=== PATIENT | female | born 1980 | race Caucasian/White ===

== ENCOUNTER 2017-06-18 11:17 | Outpatient (CLI) | payer MEDICAID | END 2017-06-18 12:40 | disposition home or self-care (01) | LOC: LC 11:17 | PROVIDERS: ATTEND Obstetrics & Gynecology | PROC: 4A1HXCZ Monitoring of Products of Conception, Cardiac Rate, External Approach (ICD-10-PCS; principal; 2017-06-18) | DX: O09.523 Supervision of elderly multigravida, third trimester (principal); Z3A.34 34 weeks gestation of pregnancy | CPT/HCPCS: 59025 ==

== ENCOUNTER 2017-06-21 11:17 | Outpatient (CLI) | payer MEDICAID ==
--- NOTE | 2017-06-21 13:17 | Non Stress Test Report ---
Non Stress Test Datetime Report Generated by CPN: 06/21/2017 13:17 DEMOGRAPHIC Test Number: 1 EGA NST: 34.5 EGA NST: 34.2 INDICATION Indication for Study: Ordered by Provider Indication for Study: Ordered by Provider Indication for Study (NST) Other: AMA VITAL SIGNS Temperature - NST: 97.5 Pulse - NST: 108 RESP - NST: 18 RESP - NST: 16 NBPSYS NST: 117 NBPDIA NST: 71 MONITORING Monitor Explained: Monitor Explained; Test Explained; Patient Verbalized Understanding Monitor Explained: Monitor Explained; Test Explained; Patient Verbalized Understanding Time on Monitor: 06/21/2017 11:25 Time on Monitor: 06/18/2017 11:28 Time off Monitor: 06/21/2017 13:14 NST Duration: 109 NST INTERVENTIONS NST Interventions: PO Hydration; Reposition Patient NST Interventions: PO Hydration; Reposition Patient Physician Notified NST: Darek Huerta CNM BABY A: [id number] BABY A Movement : Present Contraction Frequency : 0 FHR Baseline : 130 Accelerations : 15X15 Decelerations : None Variability : Moderate 6-25bpm NST Review: Meets Criteria for Reactive NST NST Review and Verified By : Claudia Dang RN NST Results: Reactive NST REPORT Report Trigger: Send Report
== END 2017-06-21 13:17 | disposition home or self-care (01) ==
LOC: LC 11:17
PROVIDERS: ATTEND Obstetrics & Gynecology
PROC: 4A1HXCZ Monitoring of Products of Conception, Cardiac Rate, External Approach (ICD-10-PCS; principal; 2017-06-21)
DX: O09.523 Supervision of elderly multigravida, third trimester (principal); Z3A.34 34 weeks gestation of pregnancy
CPT/HCPCS: 59025

== ENCOUNTER 2017-07-01 13:07 | Outpatient (CLI) | payer MEDICAID ==
[2017-07-01 14:22] LABS: APPEARANCE,URINE CLEAR; BILIRUBIN,URINE NEGATIVE (NEGATIVE); COLOR,URINE YELLOW; GLUCOSE, URINE NEGATIVE (NEGATIVE); KETONES,URINE NEGATIVE (NEGATIVE); LEUKOCYTE ESTERASE,URINE NEGATIVE (NEGATIVE); NITRITE,URINE NEGATIVE (NEGATIVE); PROTEIN,URINE NEGATIVE (NEGATIVE); UROBILINOGEN,URINE NEGATIVE mg/dL (<2.0)
[2017-07-01 14:36] LABS: URINE AMPHETAMINES SCREEN NEGATIVE; URINE BARBITURATES SCREEN NEGATIVE; URINE BENZODIAZEPINES SCREEN NEGATIVE; URINE COCAINE SCREEN NEGATIVE; URINE MARIJUANA (THC) SCREEN NEGATIVE; URINE METHADONE SCREEN NEGATIVE; URINE PHENCYCLIDINE SCREEN NEGATIVE
== END 2017-07-01 14:47 | disposition home or self-care (01) ==
LOC: LC 13:07
PROVIDERS: ATTEND Obstetrics & Gynecology
PROC: 4A1HXCZ Monitoring of Products of Conception, Cardiac Rate, External Approach (ICD-10-PCS; principal; 2017-07-01)
DX: O36.4XX0 Maternal care for intrauterine death, not applicable or unspecified (principal); O09.523 Supervision of elderly multigravida, third trimester; Z3A.36 36 weeks gestation of pregnancy
CPT/HCPCS: 80307; 81001

== ENCOUNTER 2017-07-02 10:41 | Inpatient (IN) | payer MEDICAID ==
[2017-07-02] MEDS ORDERED: RINGERS SOLUTION,LACTATED 1,000 ML IV PRN (11:31)
[2017-07-02] MEDS ORDERED: RINGERS SOLUTION,LACTATED 300 ML IV ONE (11:31)
[2017-07-02] MEDS ORDERED: OXYTOCIN/NORMAL SALINE 20 UNIT/1,000 ML RTUINJ IV PRN ×2 (11:31→20:27)
[2017-07-02] MEDS ORDERED: MISOPROSTOL 0.2 MG TABLET PV ONE (11:33)
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
[2017-07-02] MEDS ORDERED: MISOPROSTOL 0.1 MG TABLET ONE (11:51)
[2017-07-02 12:50] LABS: APPEARANCE,URINE SLIGHTLY-CLOUDY; BILIRUBIN,URINE NEGATIVE (NEGATIVE); COLOR,URINE YELLOW; GLUCOSE, URINE NEGATIVE (NEGATIVE); KETONES,URINE TRACE mg/dL (NEGATIVE); LEUKOCYTE ESTERASE,URINE NEGATIVE (NEGATIVE); NITRITE,URINE NEGATIVE (NEGATIVE); PROTEIN,URINE NEGATIVE (NEGATIVE); URINE SPECIFIC GRAVITY 1.015; UROBILINOGEN,URINE NEGATIVE mg/dL (<2.0)
[2017-07-02 13:02] LABS: URINE AMPHETAMINES SCREEN NEGATIVE; URINE BARBITURATES SCREEN NEGATIVE; URINE BENZODIAZEPINES SCREEN NEGATIVE; URINE COCAINE SCREEN NEGATIVE; URINE MARIJUANA (THC) SCREEN NEGATIVE; URINE METHADONE SCREEN NEGATIVE; URINE PHENCYCLIDINE SCREEN NEGATIVE
[2017-07-02] MEDS ORDERED: MISOPROSTOL 0.1 MG TABLET PO SCH (14:00)
[2017-07-02 14:13] LABS: ABSOLUTE EOSINOPHILS # (AUTO) 0.2 10^3/uL (0.0-0.6); ABSOLUTE LYMPHOCYTES (AUTO) 2.1 10^3/uL (0.5-4.7); ABSOLUTE MONOCYTES (AUTO) 0.8 10^3/uL (0.1-1.4); ABSOLUTE NEUT (AUTO) 10.1 10^3/uL (1.7-8.2); BASOPHILS % (AUTO) 0.3 % (0-2); EOSINOPHILS % (AUTO) 1.2 % (0-6); HEMATOCRIT 36.9 % (36.0-47.0); HEMOGLOBIN 12.1 g/dL (12.0-15.5); MEAN CORPUSCULAR HEMOGLOBIN 26.9 pg (27.0-33.4); MEAN CORPUSCULAR HGB CONC 32.8 g/dL (32.0-36.0); MEAN CORPUSCULAR VOLUME 82 fl (80-97); MONOCYTES % (AUTO) 6.1 % (3-13); PLATELET COUNT 210 10^3/uL (150-450); RED BLOOD COUNT 4.49 10^6/uL (3.72-5.28); RED CELL DISTRIBUTION WIDTH 15.2 % (11.5-14.0); SEGMENTED NEUTROPHILS % (AUTO) 76.4 % (42-78); TOTAL CELLS COUNTED % (AUTO) 100 %; WHITE BLOOD COUNT 13.3 10^3/uL (4.0-10.5)
--- NOTE | 2017-07-02 16:13 | L&D Progress Notes ---
PROGRESS NOTES Datetime Report Generated by CPN: 07/02/2017 16:13 PROGRESS NOTE Procedures: Scalp Electrode Plan: Continue Present Management; Induction Vital Signs : Reviewed Comment: coping well but would like an epidural will start pitocin VAGINAL EXAM Dilatation: 3 Dilatation: 1 Effacement: 60 Effacement: 80 Station: -2 Station: -2 Contractions: 2-4 min apart Contractions: irregular MEMBRANES Membranes: Intact FETUS A Presentation: Vertex SIGNATURE SIGNATURE: [id number] SIGNATURE: [id number] SIGNATURE: [id number] Assignment: Vinny Ye MD Signature: with User ID: Jo : with User ID: Jo
[2017-07-02] MEDS ORDERED: OXYTOCIN/NORMAL SALINE 20 UNIT/1,000 ML RTUINJ ONE (16:15)
[2017-07-02] MEDS ORDERED: BUPIVACAINE HCL 0.25 % INJ/PF (2.5 MG/1 ML) 30 ML VIAL ONE (16:37)
[2017-07-02] MEDS ORDERED: EPHEDRINE SULFATE INJ 50 MG/1 ML AMPULE ONE (16:37)
[2017-07-02] MEDS ORDERED: FENTANYL/BUPIVACAINE/NS/PF 300 MCG/150 ML RTUINJ EPI ONE (16:38)
[2017-07-02] MEDS ORDERED: ONDANSETRON HCL INJ/PF 4 MG/2 ML SDV IV ONE (17:49)
[2017-07-02] MEDS ORDERED: ONDANSETRON HCL INJ/PF 4 MG/2 ML SDV ONE (17:49)
[2017-07-02] MEDS ORDERED: DIPH/PERTUSS(ACELL)/TETANUS VAC/PF 0.5 ML SYR (>=10YO) IM PRN (20:27)
[2017-07-02] MEDS ORDERED: ZOLPIDEM TARTRATE 5 MG TABLET PO PRN (20:27)
[2017-07-02] MEDS ORDERED: DIBUCAINE 1% OINTMENT 28 GM TP PRN (20:27)
[2017-07-02] MEDS ORDERED: ACETAMINOPHEN WITH CODEINE #3 TABLET PO PRN ×2 (20:27)
[2017-07-02] MEDS ORDERED: MEASLES,MUMPS&RUBELLA VACC/PF 0.5 ML VIAL SUBCUT PRN (20:27)
[2017-07-02] MEDS ORDERED: BENZOCAINE/MENTHOL AEROSOL SPRAY 56 ML TOP PRN (20:27)
[2017-07-02] MEDS ORDERED: IBUPROFEN 800 MG TABLET PO SCH (22:00)
[2017-07-02] MEDS ORDERED: IBUPROFEN 800 MG TABLET ONE (23:46)
[2017-07-03] MEDS ORDERED: ACETAMINOPHEN WITH CODEINE #3 TABLET ONE (06:30)
[2017-07-03 07:30] LABS: HEMATOCRIT 34.9 % (36.0-47.0); HEMOGLOBIN 11.4 g/dL (12.0-15.5); MEAN CORPUSCULAR HEMOGLOBIN 26.9 pg (27.0-33.4); MEAN CORPUSCULAR HGB CONC 32.8 g/dL (32.0-36.0); MEAN CORPUSCULAR VOLUME 82 fl (80-97); PLATELET COUNT 212 10^3/uL (150-450); RED BLOOD COUNT 4.25 10^6/uL (3.72-5.28); RED CELL DISTRIBUTION WIDTH 15.3 % (11.5-14.0); WHITE BLOOD COUNT 13.5 10^3/uL (4.0-10.5)
[2017-07-03] MEDS ORDERED: SENNOSIDES/DOCUSATE 8.6-50 MG 1 EACH TABLET PO SCH (10:00)
[2017-07-03] MEDS ORDERED: PRENATAL VITAMIN W DHA CAPSULE PO SCH (10:00)
[2017-07-03] MEDS ORDERED: DOCUSATE SODIUM 100 MG CAPSULE PO SCH (10:00)
[2017-07-03] MEDS ORDERED: FERROUS SULFATE 325 MG TABLET PO SCH (10:00)
--- NOTE | 2017-07-03 12:55 | PDOC PROGRESS REPORT ---
Subjective-OB Progress Note for:: 07/03/17 Subjective: s/p day #0 Pt grieving appropriately, family at bedside, has good support. lochia is stable , pain well control, voiding without difficulty. Physical Exam (OB) Vital Signs: Intake & Output 07/02/17 07/03/17 07/04/17 06:59 06:59 06:59 Weight 81 kg - Lochia Lochia Amount: Scant < 10 ml Objective-Diagnostic Laboratory: 07/03/17 07:13 07/02/17 07/02/17 07/02/17 11:20 13:18 13:18 WBC 13.3 H RBC 4.49 Hgb 12.1 Hct 36.9 MCV 82 MCH 26.9 L MCHC 32.8 RDW 15.2 H Plt Count 210 Seg Neutrophils % 76.4 Lymphocytes % 16.0 Monocytes % 6.1 Eosinophils % 1.2 Basophils % 0.3 Absolute Neutrophils 10.1 H Absolute Lymphocytes 2.1 Absolute Monocytes 0.8 Absolute Eosinophils 0.2 Absolute Basophils 0.0 Urine Color YELLOW Urine Appearance SLIGHTLY-CLOUDY Urine pH 6.0 Ur Specific [place] 1.015 Urine Protein NEGATIVE Urine Glucose (UA) NEGATIVE Urine Ketones TRACE H Urine Blood NEGATIVE Urine Nitrite NEGATIVE Ur Leukocyte Esterase NEGATIVE Urine WBC (Auto) 1 Urine RBC (Auto) 0 Blood Type O POSITIVE Antibody Screen NEGATIVE 07/03/17 07:13 WBC 13.5 H RBC 4.25 Hgb 11.4 L Hct 34.9 L MCV 82 MCH 26.9 L MCHC 32.8 RDW 15.3 H Plt Count 212 Seg Neutrophils % Lymphocytes % Monocytes % Eosinophils % Basophils % Absolute Neutrophils Absolute Lymphocytes Absolute Monocytes Absolute Eosinophils Absolute Basophils Urine Color Urine Appearance Urine pH Ur Specific [place] Urine Protein Urine Glucose (UA) Urine Ketones Urine Blood Urine Nitrite Ur Leukocyte Esterase Urine WBC (Auto) Urine RBC (Auto) Blood Type Antibody Screen Assessment and Plan(PN) - Assessment and Plan (1) IUFD (intrauterine ) Is this a current diagnosis for this admission?: Yes Plan: routine pp care (2) (spontaneous vaginal delivery) Is this a current diagnosis for this admission?: Yes Plan: routine pp care follow up in 1 week - Time Spent with Patient Time with patient: Less than 15 minutes Critical Time spent with patient: Less than 15 minutes Medications reviewed and adjusted accordingly: Yes - Disposition Anticipated Discharge: Home Within: within 24 hours
--- NOTE | 2017-07-03 12:56 | PDOC DISCHARGE SUMMARY ---
Final Diagnosis Discharge Date: 07/03/17 - Final Diagnosis (1) IUFD (intrauterine ) Is this a current diagnosis for this admission?: Yes (2) (spontaneous vaginal delivery) Is this a current diagnosis for this admission?: Yes Discharge Data - Discharge Medication Home Medications: Vit,Calc76/Iron/Folic [Pnv 29-1 Tablet] 1 tab PO DAILY 06/18/17 Gestational Age: 36.2 Reason(s) for Admission: Demise Intrapartum Procedure(s): Spontaneous Vaginal Delivery - [place] Data Baby 1 Male at 1 minute: 0 at 5 minutes: 0 Weight: 2.977 kg Home with Mother: No Complications: Yes - iufd - Diagnosis Test Laboratory: 07/02/17 07/02/17 07/03/17 11:20 13:18 07:13 RBC 4.49 4.25 Hgb 12.1 11.4 L Hct 36.9 34.9 L Urine Opiates Screen NEGATIVE - Discharge information/Instructions Discharge Activity: Pelvic Rest Discharge Diet: Regular Disposition: HOME, SELF-CARE Follow up with: [facility] in: 1, Weeks
[2017-07-03 14:37] VITALS: BP 123/65
== END 2017-07-03 14:45 | disposition home or self-care (01) | DRG 775 ==
LOC: LR 10:41
PROVIDERS: ADMIT Obstetrics & Gynecology Gynecology; ATTEND Obstetrics & Gynecology Gynecology
PROC: 10E0XZZ Delivery of Products of Conception, External Approach (ICD-10-PCS; principal; 2017-07-02)
DX: O36.4XX0 Maternal care for intrauterine death, not applicable or unspecified (principal); Z3A.36 36 weeks gestation of pregnancy; Z37.1 Single stillbirth
CPT/HCPCS: 36415; 80307; 81001; 85025; 85027; 86592; 86850; 86900; 86901; 88307; J2405; J2590; J3010; J3490

== ENCOUNTER 2018-02-01 22:24 | Emergency (ER) | payer MEDICAID ==
--- NOTE | 2018-02-01 23:07 | ER Document Report ---
ED General - General Chief Complaint: OB Problem (<20wks) Stated Complaint: LOWER ABDOMINAL PAIN Time Seen by Provider: 02/01/18 22:42 TRAVEL OUTSIDE OF THE [place] IN LAST 30 DAYS: No - HPI Patient complains to provider of: cramping this week worse today Notes: 37-year-old female M1 currently 18 weeks presents to the emergency department for cramping since Sunday that was worse today prompting her to get seen. She states she lost the baby this past summer at 37 weeks and had a prior miscarriage at 18 weeks. She is concerned that she is in labor and is dilating. She called labor and delivery who told her to come to the emergency department. She is receiving routine care and has an appointment next week. She endorses cramping and no other symptoms at this time. - Related Data Allergies/Adverse Reactions: No Known Allergies Allergy (Verified 07/02/17 12:20) Past Medical History - Social History Smoking Status: Never Smoker Family History: Reviewed & Not Pertinent Review of Systems - Review of Systems Constitutional: No symptoms reported EENT: No symptoms reported Cardiovascular: No symptoms reported Respiratory: No symptoms reported Gastrointestinal: No symptoms reported Genitourinary: No symptoms reported Female Genitourinary: , Other - cramping Musculoskeletal: No symptoms reported Skin: No symptoms reported Hematologic/Lymphatic: No symptoms reported Neurological/Psychological: No symptoms reported Physical Exam - Vital signs Vitals: Temp Pulse Resp BP Pulse Ox 98.1 F 93 17 139/80 H 98 02/01/18 22:27 02/01/18 22:27 02/01/18 22:27 02/01/18 22:27 02/01/18 22:27 Course - Re-evaluation Re-evalutation: 02/01/18 23:04 Assessed patient with Juan Antonio Li. On ultrasound baby was moving and heart activity detected. Doppler showed heart rate of 145-155. 02/02/18 00:22 Urinalysis shows no evidence of a UTI. Patient is overall reassured when she saw the ultrasound of his activity. Patient it could be due to her activity and the fact that she did drink caffeine this afternoon. Says she has an appointment with her OB this upcoming week. At this point patient is safe to discharge home with strict precautions and pelvic rest. - Vital Signs Vital signs: Temp Pulse Resp BP Pulse Ox 98.1 F 93 17 139/80 H 98 02/01/18 22:27 02/01/18 22:27 02/01/18 22:27 02/01/18 22:27 02/01/18 22:27 Discharge - Discharge Clinical Impression: Cramping affecting , antepartum Disposition: HOME, SELF-CARE Additional Instructions: You were seen in the emergency department this evening for cramping. The ultrasound was very reassuring and you saw activity. Doppler showed the heart rate was 145-155. It is unclear why your cramping but at this point it is not life-threatening to you or your baby. Please call your OB Sunday morning and follow-up with your appointment next week. Also, ensure pelvic rest you see your OB. Refrain from sex until then. Please immediately return to the emergency department if you have vaginal bleeding and severe cramping, fever greater than 101, intractable nausea and vomiting, or if you are concerned in any way. Referrals: ANDRE NICHOLS MD [Primary Care Provider] - Follow up as needed
[2018-02-02 00:09] LABS: APPEARANCE,URINE CLEAR; BILIRUBIN,URINE NEGATIVE (NEGATIVE); COLOR,URINE COLORLESS; GLUCOSE, URINE NEGATIVE (NEGATIVE); KETONES,URINE NEGATIVE (NEGATIVE); LEUKOCYTE ESTERASE,URINE NEGATIVE (NEGATIVE); NITRITE,URINE NEGATIVE (NEGATIVE); PROTEIN,URINE NEGATIVE (NEGATIVE); URINE SPECIFIC GRAVITY 1.006; UROBILINOGEN,URINE NEGATIVE mg/dL (<2.0)
[2018-02-02 07:02] VITALS: BP 121/76
== END 2018-02-02 01:15 | disposition home or self-care (01) ==
LOC: ER 22:24
DX: O26.892 Other specified pregnancy related conditions, second trimester (principal); R10.30 Lower abdominal pain, unspecified; Z3A.18 18 weeks gestation of pregnancy
CPT/HCPCS: 81001; 99284

== ENCOUNTER 2018-06-01 19:55 | Inpatient (IN) | payer MEDICAID ==
[2018-06-01] MEDS ORDERED: TERBUTALINE SULFATE INJ/PF 1 MG/1 ML SDV ONE (20:33)
[2018-06-01 20:43] LABS: APPEARANCE,URINE CLEAR; BILIRUBIN,URINE NEGATIVE (NEGATIVE); COLOR,URINE STRAW; GLUCOSE, URINE NEGATIVE (NEGATIVE); KETONES,URINE NEGATIVE (NEGATIVE); LEUKOCYTE ESTERASE,URINE NEGATIVE (NEGATIVE); NITRITE,URINE NEGATIVE (NEGATIVE); PROTEIN,URINE NEGATIVE (NEGATIVE); URINE SPECIFIC GRAVITY 1.008; UROBILINOGEN,URINE NEGATIVE mg/dL (<2.0)
[2018-06-01] MEDS ORDERED: PENICILLIN G-K 5 MILLION UNIT VIAL ONE (20:47)
[2018-06-01 20:48] LABS: URINE AMPHETAMINES SCREEN NEGATIVE; URINE BARBITURATES SCREEN NEGATIVE; URINE BENZODIAZEPINES SCREEN NEGATIVE; URINE COCAINE SCREEN NEGATIVE; URINE MARIJUANA (THC) SCREEN NEGATIVE; URINE METHADONE SCREEN NEGATIVE; URINE PHENCYCLIDINE SCREEN NEGATIVE
[2018-06-01] MEDS ORDERED: RINGERS SOLUTION,LACTATED 1,000 ML IV PRN ×2 (20:56→20:58)
[2018-06-01] MEDS ORDERED: PENICILLIN G-K 5 MILLION UNIT VIAL IV ONE (21:15)
[2018-06-01] MEDS ORDERED: MISOPROSTOL 0.2 MG TABLET ONE (21:21)
[2018-06-01] MEDS ORDERED: LIDOCAINE 1% INJ-PF (10 MG/ML) 30 ML SDV ONE (21:21)
[2018-06-01] MEDS ORDERED: OXYTOCIN/NORMAL SALINE 20 UNIT/1,000 ML RTUINJ ONE (21:22)
[2018-06-01 21:27] LABS: ABSOLUTE EOSINOPHILS # (AUTO) 0.1 10^3/uL (0.0-0.6); ABSOLUTE LYMPHOCYTES (AUTO) 3.5 10^3/uL (0.5-4.7); ABSOLUTE MONOCYTES (AUTO) 0.9 10^3/uL (0.1-1.4); BASOPHILS % (AUTO) 0.2 % (0-2); HEMATOCRIT 33.1 % (36.0-47.0); HEMOGLOBIN 11.1 g/dL (12.0-15.5); LYMPHOCYTES % (AUTO) 25.9 % (13-45); MEAN CORPUSCULAR HEMOGLOBIN 28.8 pg (27.0-33.4); MEAN CORPUSCULAR HGB CONC 33.6 g/dL (32.0-36.0); MEAN CORPUSCULAR VOLUME 86 fl (80-97); MONOCYTES % (AUTO) 6.7 % (3-13); PLATELET COUNT 150 10^3/uL (150-450); RED BLOOD COUNT 3.86 10^6/uL (3.72-5.28); RED CELL DISTRIBUTION WIDTH 14.3 % (11.5-14.0); SEGMENTED NEUTROPHILS % (AUTO) 66.2 % (42-78); TOTAL CELLS COUNTED % (AUTO) 100 %; WHITE BLOOD COUNT 13.7 10^3/uL (4.0-10.5)
[2018-06-01] MEDS ORDERED: HYDROMORPHONE HCL INJ/PF 2 MG/ML AMPULE ONE (22:05)
[2018-06-01] MEDS ORDERED: AMPICILLIN SOD/SULBACTAM 3 GM VIAL ONE (22:25)
[2018-06-01] MEDS ORDERED: DIBUCAINE 1% OINTMENT 56 GM TP PRN (22:37)
[2018-06-01] MEDS ORDERED: PSEUDOEPHEDRINE HCL 30 MG TABLET PO PRN (22:37)
[2018-06-01] MEDS ORDERED: PROMETHAZINE HCL INJ 25 MG/1 ML VIAL IV PRN (22:37)
[2018-06-01] MEDS ORDERED: ACETAMINOPHEN WITH CODEINE #3 TABLET PO PRN (22:37)
[2018-06-01] MEDS ORDERED: ZOLPIDEM TARTRATE 5 MG TABLET PO PRN (22:37)
[2018-06-01] MEDS ORDERED: MEASLES,MUMPS&RUBELLA VACC/PF 0.5 ML VIAL SUBCUT PRN (22:37)
[2018-06-01] MEDS ORDERED: PROMETHAZINE HCL 25 MG SUPP.RECT PR PRN (22:37)
[2018-06-01] MEDS ORDERED: DIPHENHYDRAMINE HCL 25 MG CAPSULE PO PRN (22:37)
[2018-06-01] MEDS ORDERED: OXYTOCIN/NORMAL SALINE 20 UNIT/1,000 ML RTUINJ IV PRN (22:37)
[2018-06-01] MEDS ORDERED: GLYCERIN/WITCH HAZEL LEAF 1 EACH MED..PAD TP PRN (22:37)
[2018-06-01] MEDS ORDERED: NA PHOS,M-B/NA PHOS,DI-BA (ADULT) 133 ML ENEMA PR PRN (22:37)
[2018-06-01] MEDS ORDERED: PROMETHAZINE HCL 25 MG TABLET PO PRN (22:37)
[2018-06-01] MEDS ORDERED: MAGNESIUM HYDROXIDE SUSP 30 ML UDCUP PO PRN (22:37)
[2018-06-01] MEDS ORDERED: ACETAMINOPHEN 650 MG SUPP.RECT PR PRN (22:37)
[2018-06-01] MEDS ORDERED: DIPH/PERTUSS(ACELL)/TETANUS VAC/PF 0.5 ML SYR (>=10YO) IM PRN (22:37)
[2018-06-01] MEDS ORDERED: BENZOCAINE/MENTHOL AEROSOL SPRAY 56 ML TOP PRN (22:37)
[2018-06-01] MEDS ORDERED: AMPICILLIN SOD/SULBACTAM 3 GM VIAL IV ONE (23:00)
--- NOTE | 2018-06-01 23:29 | Admission Physical ---
Datetime Report Generated by CPN: 06/01/2018 23:29 CURRENT ADMISSION Chief Complaint: Uterine Contractions; Other Chief Complaint Other: Painful contractions Admit Impression : , Intrauterine ; Active Labor Admit Plan: Admit to Unit; Initiate Labor Protocol ALLERGIES Medication Allergies: No Medication Allergies: No Known Allergies (07/02/2017) OBSTETRICAL HISTORY EDC: 07/04/2018 00:00 : 6 Para: 4 Term: 3 : 1 SAB: 0 IAB: 1 Ectopic: 0 Livin Cesareans: 0 VBACs: 0 Multiple Births: 0 Gestational Diabetes: No Rh Sensitization: No Incompetent Cervix: No UMESH: No Infertility: No ART Treatment: No Uterine Anomaly: No IUGR: No Hx Previous C/S: No Macrosomia: Yes Hx Loss/Stillborn: Yes PIH: No Hx : No Placenta Previa/Abruption: No Depression/PP Depression: No PTL/PROM: No Post Hemorrhage: No Current Procedures: Ultrasound; NST Obstetrical History Comments: @ 38wks male 6lbs 9oz G204/2009 @ 39wks male 9lbs 8oz G3- 09/2010 IUFD @ 16wks female induced @ 18wks 11/2015 @ 39wks male 9lbs 12oz 06/2017 IUFD @ 36wks male 6lbs 9oz (possible placental detachment) SEE RECORDS Alcohol: No Marijuana : No Cocaine: No Other Illicit Drugs: No Cigarettes: Never Smoker. [id number] MEDICAL HISTORY Diabetes: No Blood Transfusion: No Pulmonary Disease (Asthma, TB): No Breast Disease: No Hypertension: No Medical Assistant Surgery: No Heart Disease: No Hosp/Surgery: Yes Autoimmune Disorder: No Anesthetic Complications: No Kidney Disease: No Abnormal Pap Smear: No Neuro/Epilepsy: No Psychiatric Disorders: No Other Medical Diseases: No Hepatitis/Liver Disease: No Significant Family History: No Varicosities/Phlebitis: No Trauma/Violence : No Thyroid Dysfunction: Yes Medical History Comments: hypothyroid, cholecystectomy INFECTIOUS HISTORY Gonorrhea: No Genital Herpes: No Chlamydia: No Tuberculosis: No Syphilis: No Hepatitis: No HIV/AIDS Exposure: No Rash or Viral Illness: No HPV: No PHYSICAL EXAM General: Normal HEENT: Deferred Neurologic: Normal Thyroid: Deferred Heart: Deferred Lungs: Normal Breast: Deferred Back: Normal Abdomen: Normal Genitourinary Exam: Normal Extremities: Normal DTRs: Normal Pelvic Type: Adequate Physical Exam Comments: Bloody show with exam Vital Signs: Reviewed; Within Normal Limits VAGINAL EXAM Dilatation: 9 Effacement: 90 Station: 0 Contraction Comments: 2mins MEMBRANES Membranes: Ruptured Amniotic Fluid Color: Clear FETUS A EGA: 35.2 Monitoring: External US FHR- Baseline: 130 Variability: Moderate 6-25bpm Accelerations: 15X15 Decelerations: None FHR Category: Category I Estimated Weight (gm): 2800 Presentation: Vertex Admit Comment: 37yo @ 35w2d presented to L_D with painful uterine contractions starting a few hours prior to arriving on L_D. Patient reports good fm, no vb, no lof. GBS uknown but swab collected. Patient was noted to change from 3cm to 6cm in an hours time. Patient was admitted and labor protocol started. Patient was started on penicillin for GBS unknown and status. Patient rapidly changed her cervix. NICU was called to be present at delivery. Amniotomy was performed for clear fluid and shortly there after patient delivery a viable female . PLANS FOR LABOR AND DELIVERY Labor and Delivery: None Pain Management: Epidural Feeding Preference: Breast Benefit of Breast Feed Discussed: Yes Circumcision: N/A INFORMED CONSENT Signature: with User ID: [email or web address]
--- NOTE | 2018-06-02 01:21 | Delivery Summary ---
Del Sum A-C Datetime Report Generated by CPN: 06/02/2018 01:21 DELIVERY PERSONNEL DELIVERY PERSONNEL: [id number] Delivery Doctor:: Reba Muir MD Labor and Delivery Nurse:: Lianne Love RN Nursery Nurse:: Tanna Panda RN Clerical Warehouse Worker/HOT MIX OPERATOR: Julisa Carr, ESTATE AGENT MATERNAL INFORMATION Delivery Anesthesia: None Medications After Delivery: Pitocin Bolus-Please Comment Meds After Delivery Comment: Pitocin bolus 20 units/1000 mL NS bolus Estimated Blood Loss (ml): 50 Maternal Complications: Precipitous Labor (<3hrs); Other Complication Details: GBS unknown Provider Comments: Pitocin given after baby born. Fundal massage completed and gentle traction on the umbilical cord placed. No signs of placental separation after 30mins. Placenta was manually removed in pieces. The internal surface of the uterus was palpated after removal of the placenta and noted to be smooth. Patient had to be given 2mg of dilaudid in prep for removal of the placenta. Patient received unasyn 3g IV x 1. Patient tolerated procedure well. LABOR SUMMARY EDC: 07/04/2018 00:00 No. Babies in Womb: 1 Attempted: No Labor Anesthesia: None LABOR INFORMATION Reason for Induction: Not Applicable Onset of Labor: 06/01/2018 20:58 Complete Dilatation: 06/01/2018 21:47 Oxytocin: N/A Group B Beta Strep: unkown Antibiotics # of Doses: 1 Antibiotics Time of Last Dose: 2105 Name of Antibiotic Given: PCN Steroids Given: None Reason Steroids Not Administered: Not Applicable Other Reason Not Administered: precipitous labor MEMBRANES Membranes Rupture Method: Artificial Rupture of Membranes: 06/01/2018 21:46 Length of Rupture (hr): 0.05 Amniotic Fluid Color: Clear Amniotic Fluid Amount: Small Amniotic Fluid Odor: Normal STAGES OF LABOR Stage 1 hr: 0 Stage 1 min: 49 Stage 2 hr: 0 Stage 2 min: 2 Stage 3 hr: 0 Stage 3 min: 23 Total Time in Labor hr: 1 Total Time in Labor min: 14 VAGINAL DELIVERY Episiotomy: None Laceration #1: None Laceration Repair: Not Applicable Sponge Count Correct: Yes Sharps Count Correct: Yes CSECTION DELIVERY Primary Indication: N/A Secondary Indication: N/A CSection Incidence: N/A Labor: N/A Elective: N/A CSection Incision: N/A BABY A INFORMATION Infant Delivery Date/Time: 06/01/2018 21:49 Method of Delivery: Vaginal Born in Route : No : N/A Forceps: N/A Vacuum Extraction: N/A Shoulder Dystocia : No PRESENTATION/POSITION BABY A Presentation: Cephalic Cephalic Presentation: Vertex Vertex Position: Left Occipital Anterior Breech Presentation: N/A PLACENTA INFORMATION BABY A Placenta Delivery Time : 06/01/2018 22:12 Placenta Method of Delivery: Manual Removal Placenta Status: Delivered SCORES BABY A Heart Rate 1 min: >100 bpm Resp Effort 1 min: Good Cry Reflex Irritability 1 min: Cough or Sneeze or Pulls Away Muscle Tone 1 min: Active Motion Color 1 min: Blue/Pale SCORE 1 MIN: 8 Heart Rate 5 min: >100 bpm Resp Effort 5 min: Good Cry Reflex Irritability 5 min: Cough or Sneeze or Pulls Away Muscle Tone 5 min: Active Motion Color 5 min: Blue/Pale SCORE 5 MIN: 8 INFORMATION BABY A Gestational Age at Delivery: 35.2 Gestational Status: Late - 34- 36.6 Weeks Infant Outcome : Liveborn Condition : Stable Infant Sex: Female IDENTIFICATION BABY A Verification Date/Time: 06/01/2018 22:01 ID Band Number: [id number] Mother's Name Verified: Yes RN Verifying : C Gentilin, RN WEIGHT/LENGTH BABY A Birthweight (gm): 3124 Weight (lb): 6 Weight (oz): 14 Length (in): 20.25 Infant Length (cm): 51.44 CORD INFORMATION BABY A No. Cord Vessels: 3 Nuchal Cord : N/A Cord Blood Taken: Yes-For Storage (Mom's Blood type +) Infant Suction: Mouth ASSESSMENT BABY A Physical Findings- Other: see nursery assessment Skin to Skin: No Care By: Jana Panda RN Transferred To: Nursery SIGNATURES Signature: with User ID: [email or web address]
[2018-06-02] MEDS: ACETAMINOPHEN WITH CODEINE #3 TABLET PO PRN ×2 (03:45→10:29)
[2018-06-02] MEDS: FAMOTIDINE 20 MG TABLET PO SCH ×3 (04:57→22:31)
[2018-06-02] MEDS: PENICILLIN G POTASSIUM 2,500,000 UNIT in DEXTROSE 5%-WATER 50 ML IV SCH ×5 (04:57→18:42)
[2018-06-02] MEDS: IBUPROFEN 800 MG TABLET PO SCH ×3 (05:48→22:31)
[2018-06-02 08:01] LABS: HEMATOCRIT 31.6 % (36.0-47.0); HEMOGLOBIN 10.7 g/dL (12.0-15.5); MEAN CORPUSCULAR HGB CONC 33.8 g/dL (32.0-36.0); MEAN CORPUSCULAR VOLUME 86 fl (80-97); PLATELET COUNT 167 10^3/uL (150-450); RED BLOOD COUNT 3.69 10^6/uL (3.72-5.28); RED CELL DISTRIBUTION WIDTH 14.4 % (11.5-14.0); WHITE BLOOD COUNT 16.5 10^3/uL (4.0-10.5)
--- NOTE | 2018-06-02 10:22 | PDOC PROGRESS REPORT ---
Subjective-OB Progress Note for:: 06/02/18 Subjective: Pt doing well, no concerns. She reports light bleeding, reg diet and voiding without difficulty. Physical Exam (OB) Vital Signs: Temp Pulse Resp BP Pulse Ox 98.2 F 91 16 129/74 H 100 06/02/18 03:58 06/02/18 03:58 06/02/18 03:58 06/02/18 03:58 06/02/18 03:58 Intake & Output 06/01/18 06/02/18 06/03/18 06:59 06:59 06:59 Intake Total 240 Balance 240 - PIH/Pre-Eclampsia Headache: Absent Epigastric Pain: No Visual Changes: No - Lochia Lochia Amount: Scant < 10 ml Lochia Color: Rubra/Red - Abdomen Description: Tender, Soft Hernia Present: No Fundal Description: Firm, Midline Fundal Height: u/u - u/2 Objective-Diagnostic Laboratory: 06/02/18 07:39 06/01/18 06/01/18 06/01/18 20:00 21:16 21:16 WBC 13.7 H RBC 3.86 Hgb 11.1 L Hct 33.1 L MCV 86 MCH 28.8 MCHC 33.6 RDW 14.3 H Plt Count 150 Seg Neutrophils % 66.2 Lymphocytes % 25.9 Monocytes % 6.7 Eosinophils % 1.0 Basophils % 0.2 Absolute Neutrophils 9.0 H Absolute Lymphocytes 3.5 Absolute Monocytes 0.9 Absolute Eosinophils 0.1 Absolute Basophils 0.0 Urine Color STRAW Urine Appearance CLEAR Urine pH 7.0 Ur Specific [place] 1.008 Urine Protein NEGATIVE Urine Glucose (UA) NEGATIVE Urine Ketones NEGATIVE Urine Blood LARGE H Urine Nitrite NEGATIVE Ur Leukocyte Esterase NEGATIVE Urine WBC (Auto) 2 Urine RBC (Auto) 2 Blood Type O POSITIVE Antibody Screen NEGATIVE 06/02/18 07:39 WBC 16.5 H RBC 3.69 L Hgb 10.7 L Hct 31.6 L MCV 86 MCH 29.0 MCHC 33.8 RDW 14.4 H Plt Count 167 Seg Neutrophils % Lymphocytes % Monocytes % Eosinophils % Basophils % Absolute Neutrophils Absolute Lymphocytes Absolute Monocytes Absolute Eosinophils Absolute Basophils Urine Color Urine Appearance Urine pH Ur Specific [place] Urine Protein Urine Glucose (UA) Urine Ketones Urine Blood Urine Nitrite Ur Leukocyte Esterase Urine WBC (Auto) Urine RBC (Auto) Blood Type Antibody Screen Assessment and Plan(PN) - Assessment and Plan (1) (spontaneous vaginal delivery) Is this a current diagnosis for this admission?: Yes - Time Spent with Patient Time with patient: Less than 15 minutes Medications reviewed and adjusted accordingly: Yes - Disposition Anticipated Discharge: Home Within: within 24 hours
[2018-06-02] MEDS: FERROUS SULFATE 325 MG TABLET PO SCH ×2 (10:28→18:18)
[2018-06-02] MEDS: SENNOSIDES/DOCUSATE 8.6-50 MG 1 EACH TABLET PO SCH (10:28)
[2018-06-02] MEDS: DOCUSATE SODIUM 100 MG CAPSULE PO SCH ×2 (10:28→18:18)
[2018-06-02] MEDS: PRENATAL VITAMIN W DHA CAPSULE PO SCH (10:28)
[2018-06-03] MEDS: PENICILLIN G POTASSIUM 2,500,000 UNIT in DEXTROSE 5%-WATER 50 ML IV SCH ×2 (02:26→07:48)
[2018-06-03] MEDS: IBUPROFEN 800 MG TABLET PO SCH ×2 (06:58→13:53)
[2018-06-03 08:23] VITALS: BP 113/59
[2018-06-03] MEDS ORDERED: DIPH/PERTUSS(ACELL)/TETANUS VAC/PF 0.5 ML SYR (>=10YO) IM PRN (09:30)
[2018-06-03] MEDS ORDERED: MEASLES,MUMPS&RUBELLA VACC/PF 0.5 ML VIAL SUBCUT PRN (09:30)
[2018-06-03] MEDS ORDERED: PENICILLIN G-K 5 MILLION UNIT VIAL IV SCH (10:00)
--- NOTE | 2018-06-03 10:13 | PDOC DISCHARGE SUMMARY ---
Final Diagnosis Discharge Date: 06/03/18 - PP Day #2, delivered at 35 wks, baby in the NICU today, pt is pumping breastmilk. O+, rubella immune, pt desires to staty as a "Selam" overnight since baby remains hospitalized - Final Diagnosis (1) Precipitous delivery Is this a current diagnosis for this admission?: Yes (2) 35 weeks gestation of Is this a current diagnosis for this admission?: Yes (4) Retained placenta or membranes without hemorrhage Is this a current diagnosis for this admission?: Yes (5) (spontaneous vaginal delivery) Is this a current diagnosis for this admission?: Yes Discharge Data - Discharge Medication Prescriptions: Ibuprofen [Motrin 800 mg Tablet] 800 mg PO Q8 #60 tablet Home Medications: Vit,Calc76/Iron/Folic [Pnv 29-1 Tablet] 1 tab PO DAILY 06/18/17 Ibuprofen [Motrin 800 mg Tablet] 800 mg PO Q8 #60 tablet 06/03/18 Reason(s) for Admission: Onset of Labor, Labor Procedures: Ultrasound Intrapartum Procedure(s): Spontaneous Vaginal Delivery - Diagnosis Test Laboratory: Temp Pulse Resp BP Pulse Ox 98.0 F 74 16 113/59 L 97 06/03/18 07:53 06/03/18 07:53 06/03/18 07:53 06/03/18 07:53 06/03/18 07:53 06/01/18 06/01/18 06/02/18 20:00 21:16 07:39 RBC 3.86 3.69 L Hgb 11.1 L 10.7 L Hct 33.1 L 31.6 L Urine Opiates Screen NEGATIVE - Discharge information/Instructions Discharge Activity: Activity As Tolerated, No Lifting Over 10 Pounds, Pelvic Rest Discharge Diet: As Tolerated, Regular Disposition: HOME, SELF-CARE Follow up with: [facility] in: Weeks
[2018-06-03] MEDS: PRENATAL VITAMIN W DHA CAPSULE PO SCH (10:50)
[2018-06-03] MEDS: SENNOSIDES/DOCUSATE 8.6-50 MG 1 EACH TABLET PO SCH (10:50)
[2018-06-03] MEDS: FAMOTIDINE 20 MG TABLET PO SCH (10:50)
[2018-06-03] MEDS: DOCUSATE SODIUM 100 MG CAPSULE PO SCH ×2 (10:51→18:36)
[2018-06-03] MEDS: FERROUS SULFATE 325 MG TABLET PO SCH ×2 (10:51→18:36)
== END 2018-06-03 18:39 | disposition home or self-care (01) | DRG 805 ==
LOC: LC 19:55 → LR 21:06 → 2S 06-02 01:01
PROVIDERS: ADMIT Obstetrics & Gynecology; ATTEND Obstetrics & Gynecology
PROC: 10E0XZZ Delivery of Products of Conception, External Approach (ICD-10-PCS; principal; 2018-06-01)
PROC: 10907ZC Drainage of Amniotic Fluid, Therapeutic from Products of Conception, Via Natural or Artificial Opening (ICD-10-PCS; 2018-06-01)
DX: O62.3 Precipitate labor (principal); O60.14X0 Preterm labor third trimester with preterm delivery third trimester, not applicable or unspecified; Z37.0 Single live birth; Z3A.35 35 weeks gestation of pregnancy; O99.284 Endocrine, nutritional and metabolic diseases complicating childbirth; E03.9 Hypothyroidism, unspecified; Z90.49 Acquired absence of other specified parts of digestive tract
CPT/HCPCS: 36415; 80307; 81001; 85025; 85027; 86592; 86850; 86900; 86901; 87081; 88307; 94760; J0295; J1170; J2540; J2590; J3105; J3490